=== PATIENT | male | born 1970 | race Caucasian/White ===

== ENCOUNTER 2016-11-19 10:04 | Emergency (ER) | payer OTHER ==
[~2016-11-19] VITALS: Ht 188 cm; Wt 128.0 kg
[2016-11-19 10:08] VITALS: TEMP 37; Ht 188 cm; Wt 128.0 kg
[2016-11-19] MEDS ORDERED: PRLSR20 PO (10:53)
[2016-11-19] MEDS ORDERED: ACETAMINOPHEN 500 MG TAB PO STA (10:59)
--- NOTE | 2016-11-19 11:07 | EMERGENCY ROOM VISIT NOTE ---
History Report prepared by Sudheer: Luis Alfredo Jim Under the Supervision of: Dr. Mil Rod M.D. First contact with patient: 10:49 Chief Complaint: NEURO SYMPTOMS Stated Complaint: NAUSEA/BLURRED VISION/WEAKNESS Nursing Triage Summary: pt to the ED via EMS from [facility] where around 0900 pt had blurried vision, weakness, nausea, and worsening EDDY with "swirrles" in his bilateral vision. pt has a hx of EDDY's and had a MRI and was told that he has fluid on his temporal lobe History of Present Illness The patient is a 46 year old male who presents to the Emergency Room with complaints of an episode of neurological symptoms that occurred around a couple hours ago. He says he was doing grocery shopping at [facility], and he suddenly started to get really nauseous, weak, and was shaking and felt like vomiting. He had to sit down in the middle of an aisle. The patient then got back up and felt okay, but he had to cut his shopping short. Other employees at the counter told the patient that his face was red and flushed. The patient then started to feel hot and was overall just not feeling well. He also had squiggly vision and had a hard time focusing and getting a clear facial picture. The patient then sat down on a bench, and went to the hospital. Currently, he says his weakness is still there, but his shakiness is gone. [facility] that found that he has fluid in his temporal lobe. He is going to see a neurologist at [facility] tomorrow to find out what is going on. Per the patient' s , the patient has been having a headache for the past 2 to 3 weeks. He has been having such bad migraines recently that he has had to call off work some days. He currently does have a headache, and rates it as a 5 out of 10 in severity. The patient's memory and track of thinking has also been off for the past 2 weeks. He says that he had several traumatic brain injuries in the when he was in service. The patient denies any fevers, chills, vomiting, abdominal pain, urinary symptoms, bowel problems, or changes in speech. He takes Omeprazole and Celexa daily. He has been taking Excedrin for his headache. The patient does not take any blood thinners. Source of History: patient, spouse/significant other Onset: A couple hours ago Position: other (global - neurological symptoms) Timing: other (episode) Associated Symptoms: + headache, + nausea, + weakness, No abdominal pain, No chills, No fevers, No urinary symptoms, No vomiting Note: Associated symptoms: Shaking, felt like vomiting, face red and flushed, felt hot , squiggly vision, hard time focusing and getting clear facial picture. Memory and track of thinking has been off for past 2 weeks. Denies bowel problems or changes in speech. Review of Systems All systems have been listed, reviewed, and are negative other than those previously mentioned. Please see Additional Medical History Sheet. Past Medical & Surgical Medical Problems: (1) Brain injuries (2) HTN (hypertension) (3) Skin problem Surgical Problems: (1) Hx of mastoidectomy (2) Hx of tonsillectomy Family History Diabetes mellitus Heart disease Hypertension Social History Smoking Status: Former Smoker Smokeless Tobacco Use: No Alcohol Use: none Housing Status: lives with family Occupation Status: employed Current/Historical Medications Scheduled Omeprazole (Prilosec), 20 MG PO DAILY [Citalopram], 3 TAB PO DAILY Allergies Coded Allergies: No Known Allergies (Unverified , 11/19/16) Physical Exam Vital Signs Date Time Temp Pulse Resp B/P Pulse Ox O2 Delivery O2 Flow Rate FiO2 11/19/16 14:12 79 11/19/16 14:01 88 20 155/92 96 Room Air 11/19/16 12:01 80 18 156/97 97 Room Air 11/19/16 10:08 105 11/19/16 10:08 Room Air 11/19/16 10:08 37.0 96 20 171/107 97 Room Air Physical Exam GENERAL: Patient awake, alert, oriented x 3. Patient follows commands. Patient does not appear toxic. Patient is adequately hydrated and well- nourished. SKIN: No pallor, cyanosis or rash. Erythematous scaly dry skin on forehead. HEENT: Normal head, pupils equal, reactive to light and accommodation. Oral cavity and posterior pharynx appear normal. Neck: Without adenopathy, no neck vein distention. LUNGS: Clear to auscultation. No wheezes, no rales, no rhonchi. HEART: No murmurs. No gallops. No rubs ABDOMEN: No masses, no rebound, no hepatomegaly or splenomegaly. Obese. EXTREMITIES: No signs of trauma. No pedal or pretibial edema. No calf or thigh tenderness. NEUROLOGIC: No focal findings. Cranial nerves II-XII within normal limits. No gross motor sensory function deficits. Medical Decision & Procedures ER Provider Diagnostic Interpretation: X-ray results as stated below per my interpretation and radiologist interpretation. Other radiology results as stated below per my review and radiologist interpretation: CT OF THE HEAD WITHOUT CONTRAST CLINICAL HISTORY: Weakness, nausea and blurred vision. History of traumatic brain injury. COMPARISON STUDY: No previous studies for comparison. CT DOSE: 537.48 mGy.cm TECHNIQUE: Helical axial images of the head were obtained without IV contrast. Automated exposure control was utilized for the study. FINDINGS: No acute intracranial hemorrhage, midline shift or mass effect is present. Ventricular system is normal. Basilar cisterns are patent. There are no extra-axial collections. [place]-white differentiation is maintained. There are no findings to suggest acute dural sinus thrombosis or acute territorial infarct. There is no calvarial fracture. There are postsurgical findings within the right mastoid. There is no significant sinus opacification. IMPRESSION: 1. No acute intracranial findings. 2. No calvarial fracture. 3. Deformity of the right mastoid which is likely postsurgical. Electronically signed by: Bar Corona M.D. 11/19/2016 11:37 AM Dictated Date/Time: 11/19/2016 11:28 AM CHEST 2 VIEWS ROUTINE CLINICAL HISTORY: weakness NAUSEA COMPARISON STUDY: No previous studies for comparison. FINDINGS: The heart is the upper limits of normal in size. There are slightly low lung volumes with increased right basal markings likely atelectatic. There is no lobar consolidation. There are no pleural effusions.[ IMPRESSION: No active disease in the chest. Electronically signed by: Jerry Mike M.D. 11/19/2016 11:39 AM Dictated Date/Time: 11/19/2016 11:38 AM Laboratory Results 11/19/16 10:15 Red Blood Count 5.42, Mean Corpuscular Volume 89.5, Mean Corpuscular Hemoglobin 31.9, Mean Corpuscular Hemoglobin Concent 35.7, Mean Platelet Volume 11.0, Neutrophils (%) (Auto) 51.9, Lymphocytes (%) (Auto) 36.4, Monocytes (%) (Auto) 8.5, Eosinophils (%) (Auto) 2.5, Basophils (%) (Auto) 0.6, Neutrophils # (Auto) 3.59, Lymphocytes # (Auto) 2.52, Monocytes # (Auto) 0.59, Eosinophils # (Auto) 0.17, Basophils # (Auto) 0.04 11/19/16 10:15 Test 11/19/16 10:15 11/19/16 12:20 White Blood Count 6.92 K/uL (4.8-10.8) Red Blood Count 5.42 M/uL (4.7-6.1) Hemoglobin 17.3 g/dL (14.0-18.0) Hematocrit 48.5 % (42-52) Mean Corpuscular Volume 89.5 fL (80-100) Mean Corpuscular Hemoglobin 31.9 pg (25-34) Mean Corpuscular Hemoglobin Concent 35.7 g/dl (32-36) Platelet Count 234 K/uL (130-400) Mean Platelet Volume 11.0 fL (7.4-10.4) Neutrophils (%) (Auto) 51.9 % Lymphocytes (%) (Auto) 36.4 % Monocytes (%) (Auto) 8.5 % Eosinophils (%) (Auto) 2.5 % Basophils (%) (Auto) 0.6 % Neutrophils # (Auto) 3.59 K/uL (1.4-6.5) Lymphocytes # (Auto) 2.52 K/uL (1.2-3.4) Monocytes # (Auto) 0.59 K/uL (0.11-0.59) Eosinophils # (Auto) 0.17 K/uL (0-0.5) Basophils # (Auto) 0.04 K/uL (0-0.2) RDW Standard Deviation 41.7 fL (36.4-46.3) RDW Coefficient of Variation 12.7 % (11.5-14.5) Immature Granulocyte % (Auto) 0.1 % Immature Granulocyte # (Auto) 0.01 K/uL (0.00-0.02) Prothrombin Time 11.0 SECONDS (9.0-12.0) Prothromb Time International Ratio 1.0 (0.9-1.1) Activated Partial Thromboplast Time 29.0 SECONDS (21.0-31.0) Partial Thromboplastin Ratio 1.1 Anion Gap 9.0 mmol/L (3-11) Est Creatinine Clear Calc Drug Dose 94.8 ml/min Estimated GFR () 69.8 Estimated GFR (Non- 60.3 BUN/Creatinine Ratio 15.8 (10-20) Calcium Level 8.6 mg/dl (8.5-10.1) Total Bilirubin 0.7 mg/dl (0.2-1) Aspartate Amino Transf (AST/SGOT) 23 U/L (15-37) Alanine Aminotransferase (ALT/SGPT) 71 U/L (12-78) Alkaline Phosphatase 66 U/L (45-117) Troponin I < 0.015 ng/ml (0-0.045) Total Protein 7.5 gm/dl (6.4-8.2) Albumin 3.9 gm/dl (3.4-5.0) Globulin 3.6 gm/dl (2.5-4.0) Albumin/Globulin Ratio 1.1 (0.9-2) Urine Color YELLOW Urine Appearance CLEAR (CLEAR) Urine pH 5.0 (4.5-7.5) Urine Specific [place] 1.025 (1.000-1.030) Urine Protein NEG (NEG) Urine Glucose (UA) NEG (NEG) Urine Ketones NEG (NEG) Urine Occult Blood NEG (NEG) Urine Nitrite NEG (NEG) Urine Bilirubin NEG (NEG) Urine Urobilinogen NEG (NEG) Urine Leukocyte Esterase NEG (NEG) Laboratory results as stated above per my review. Medications Administered Medications (Trade) Dose Ordered Sig/Salena Route Start Time Stop Time Status Last Admin Dose Admin Acetaminophen (Tylenol Tab) 1,000 mg NOW STAT PO 11/19/16 10:59 11/19/16 11:02 DC 11/19/16 11:08 1,000 MG ECG Indication: weakness Rate (beats per minute): 94 Rhythm: normal sinus Findings: no acute ischemic change, no ectopy ED Course 1052: Past medical records reviewed. The patient was evaluated in room C3. A complete history and physical examination was performed. 1059: Ordered Tylenol Tab 1000 mg PO. 1355: I reevaluated the patient and told him that we are just waiting for the MRI result. Medical Decision Nurses notes reviewed. Medical history sheet reviewed. Differential diagnosis includes but is not limited to: acute CVA, TIA, traumatic brain injury, meningitis, encephalitis, subdural epidural. The patient is here with a near syncopal type episode this morning. He was evaluated and multiple labs and imaging performed. Please see above. [facility] I discussed results with the patient and his . We all agree that he can safely go home. He is to follow-up with his neurologist tomorrow. Impression Primary Impression: Near syncope Scribe Attestation The scribe's documentation has been prepared under my direction and personally reviewed by me in its entirety. I confirm that the note above accurately reflects all work, treatment, procedures, and medical decision making performed by me. Departure Information Patient Instructions My [facility] Additional Instructions Continue all of your current medications as prescribed. Follow-up with your neurologist tomorrow. Return here sooner if you have another episode like you did this morning.
[2016-11-19 11:14] LABS: BASO % 0.6 %; BASO ABS # 0.04 K/uL (0-0.2); COMPLETE YES; EOS % 2.5 %; HEMATOCRIT 48.5 % (42-52); IG% 0.1 %; LYMPH % 36.4 %; LYMPH ABS # 2.52 K/uL (1.2-3.4); MEAN CELL VOLUME 89.5 fL (80-100); MEAN CORPUSCULAR HEMOGLOBIN 31.9 pg (25-34); MEAN CORPUSCULAR HGB CONC 35.7 g/dl (32-36); MONO % 8.5 %; NEUT % 51.9 %; PLATELET COUNT 234 K/uL (130-400); RED BLOOD COUNT 5.42 M/uL (4.7-6.1); WHITE BLOOD COUNT 6.92 K/uL (4.8-10.8)
[2016-11-19 11:22] LABS: ALT/SGPT 71 U/L (12-78); AST/SGOT 23 U/L (15-37); BLOOD UREA NITROGEN 22 mg/dl (7-18); BUN/CREATININE RATIO 15.8 (10-20); CALCIUM 8.6 mg/dl (8.5-10.1); CARBON DIOXIDE 24 mmol/L (21-32); CHLORIDE 109 mmol/L (98-107); GLUCOSE 100 mg/dl (70-99); POTASSIUM 4.1 mmol/L (3.5-5.1); SODIUM 142 mmol/L (136-145)
[2016-11-19 11:27] LABS: ALB/GLOB RATIO 1.1 (0.9-2); ALKALINE PHOSPHATASE 66 U/L (45-117)
[2016-11-19 11:28] LABS: PARTIAL THROMBOPLASTIN RATIO 1.1
--- NOTE | 2016-11-19 11:38 | DIAGNOSTIC IMAGING REPORT ---
CT OF THE HEAD WITHOUT CONTRAST CLINICAL HISTORY: Weakness, nausea and blurred vision. History of traumatic brain injury. COMPARISON STUDY: No previous studies for comparison. CT DOSE: 537.48 mGy.cm TECHNIQUE: Helical axial images of the head were obtained without IV contrast. Automated exposure control was utilized for the study. FINDINGS: No acute intracranial hemorrhage, midline shift or mass effect is present. Ventricular system is normal. Basilar cisterns are patent. There are no extra-axial collections. [place]-white differentiation is maintained. There are no findings to suggest acute dural sinus thrombosis or acute territorial infarct. There is no calvarial fracture. There are postsurgical findings within the right mastoid. There is no significant sinus opacification. IMPRESSION: 1. No acute intracranial findings. 2. No calvarial fracture. 3. Deformity of the right mastoid which is likely postsurgical. Electronically signed by: Bar Corona M.D. 11/19/2016 11:37 AM Dictated Date/Time: 11/19/2016 11:28 AM
--- NOTE | 2016-11-19 11:40 | DIAGNOSTIC IMAGING REPORT ---
CHEST 2 VIEWS ROUTINE CLINICAL HISTORY: weakness NAUSEA COMPARISON STUDY: No previous studies for comparison. FINDINGS: The heart is the upper limits of normal in size. There are slightly low lung volumes with increased right basal markings likely atelectatic. There is no lobar consolidation. There are no pleural effusions.[ IMPRESSION: No active disease in the chest. Electronically signed by: Jerry Mike M.D. 11/19/2016 11:39 AM Dictated Date/Time: 11/19/2016 11:38 AM
[2016-11-19] MEDS ORDERED: CITALOPRAM PO (11:48)
[2016-11-19 12:35] LABS: URINE APPEARANCE CLEAR (CLEAR); URINE BILIRUBIN NEG (NEG); URINE COLOR YELLOW; URINE NITRITE NEG (NEG); URINE SPECIFIC GRAVITY 1.025 (1.000-1.030); UROBILINOGEN NEG (NEG); ZZUR CULT IF INDIC CLEAN CATCH NO
[2016-11-19 12:39] LABS: MANUAL MICROSCOPIC REQUIRED? NO; REVIEW REQ? NO
[2016-11-19 16:10] VITALS: BP 157/105; PULSE 83; O2SAT 96
== END 2016-11-19 16:11 | disposition home or self-care (01) ==
LOC: EDBD 10:04 → C.EDC 10:05
DX: R55 Syncope and collapse (principal); I10 Essential (primary) hypertension; Z82.49 Family history of ischemic heart disease and other diseases of the circulatory system; Z87.891 Personal history of nicotine dependence; Z79.899 Other long term (current) drug therapy

== ENCOUNTER 2017-10-13 21:24 | Emergency (ER) | payer OTHER ==
[~2017-10-13] VITALS: Ht 188 cm; Wt 124.3 kg
[~2017-10-13 21:24] MED LIST: CITALOPRAM PO; PRLSR20 PO
[2017-10-13 21:29] VITALS: TEMP 36.5; Ht 188 cm; Wt 124.3 kg
[2017-10-13 21:55] VITALS: O2SAT 95
[2017-10-13] MEDS ORDERED: ALUMINUM/MAGNESIUM SUSP 30 ML UDC PO STA (22:00)
[2017-10-13] MEDS ORDERED: ACETAMINOPHEN 500 MG TAB PO STA (22:00)
[2017-10-13] MEDS ORDERED: ASPIRIN 81 MG CHEW PO STA (22:00)
[2017-10-13] MEDS ORDERED: IBUP-1451 PO (22:02)
[2017-10-13] MEDS ORDERED: LMC25 PO (22:04)
[2017-10-13] MEDS ORDERED: EFF75 PO (22:09)
--- NOTE | 2017-10-13 22:09 | EMERGENCY ROOM VISIT NOTE ---
History Report prepared by Sudheer: Roderick Valencia Under the Supervision of: Dr. Willie Pascal D.O. First contact with patient: 21:47 Chief Complaint: CHEST PAIN Stated Complaint: CHEST PAIN,137/67,HR 134, EDDY History of Present Illness The patient is a 47 year old male who presents to the Emergency Room with complaints of constant chest pain that occurred 2 hours prior to arrival. He describes the pain as a "pressure" in the center of his chest, and notes that it onset while he was sitting watching TV. He did not do an strenuous activity to cause the pain. He also complains of difficulty catching his breath and a headache. The patient's notes that he seems to be breathing heavier than usual. The patient took his vital signs when the pain began and his blood pressure was 124/73, and pulse was 134. The patient does have a family history of cardiac disease and diabetes, but no personal history of blood clotting. 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 A total of 10 systems reviewed and were otherwise negative. Past Medical & Surgical Medical Problems: (1) Brain injuries (2) HTN (hypertension) (3) Skin problem Surgical Problems: (1) Hx of mastoidectomy (2) Hx of tonsillectomy Family History Diabetes mellitus Heart disease Hypertension Social History Smoking Status: Former Smoker Alcohol Use: none Housing Status: lives with family Occupation Status: employed Current/Historical Medications Scheduled Omeprazole (Prilosec), 20 MG PO DAILY Venlafaxine Hcl (Effexor), 75 MG PO DAILY Scheduled PRN Ibuprofen Tab (Motrin), 800 MG PO Q8H PRN for Pain Allergies Coded Allergies: No Known Allergies (Unverified , 11/19/16) Physical Exam Vital Signs Date Time Temp Pulse Resp B/P (MAP) Pulse Ox O2 Delivery O2 Flow Rate FiO2 10/14/17 00:59 98 14 155/86 96 Room Air 10/13/17 23:56 96 19 148/92 97 Room Air 10/13/17 23:24 102 14 96 10/13/17 22:54 97 22 94 10/13/17 22:24 96 12 95 10/13/17 21:55 95 Room Air 10/13/17 21:55 95 Room Air 10/13/17 21:29 36.5 104 18 141/78 95 Room Air Physical Exam GENERAL: Patient is awake, alert, and in mildly anxious appearing. EYES: The conjunctivae are clear. The pupils are round and reactive. EARS, NOSE, MOUTH AND THROAT: The nose is without any evidence of any deformity. Mucous membranes are moist tongue is midline NECK: The neck is nontender and supple. RESPIRATORY: Normal respiratory effort is noted there is no evidence of wheezing rhonchi or rales CARDIOVASCULAR: Regular rate and rhythm noted there no murmurs rubs or gallops normal S1 normal S2 GASTROINTESTINAL: The abdomen is soft. Bowel sounds are present in all quadrants. Abdomen is nontender MUSCULOSKELETAL/EXTREMITIES: There is no evidence of gross deformity full range of motion is noted in the hips and shoulders SKIN: There is pedal edema bilaterally. There is no obvious evidence of any rash. There are no petechiae, pallor or cyanosis noted. NEUROLOGIC: Patient is awake alert and oriented x3. Medical Decision & Procedures ER Provider Diagnostic Interpretation: Radiology results as stated below per my review and radiologist interpretation: CHEST ONE VIEW PORTABLE HISTORY: Atypical chest pain. COMPARISON: Chest 11/19/2016. FINDINGS: The lungs are clear. Cardiac silhouette is normal in size. No pleural effusions. No pneumothorax. Low lung volumes. IMPRESSION: No acute process. Electronically signed by: Oni Pitts M.D. 10/13/2017 10:44 PM Dictated Date/Time: 10/13/2017 10:43 PM Laboratory Results 10/13/17 21:50 Red Blood Count 4.96, Mean Corpuscular Volume 89.5, Mean Corpuscular Hemoglobin 33.1, Mean Corpuscular Hemoglobin Concent 36.9, Mean Platelet Volume 10.4, Neutrophils (%) (Auto) 54.4, Lymphocytes (%) (Auto) 34.2, Monocytes (%) (Auto) 7.8, Eosinophils (%) (Auto) 2.9, Basophils (%) (Auto) 0.5, Neutrophils # (Auto) 4.95, Lymphocytes # (Auto) 3.11, Monocytes # (Auto) 0.71, Eosinophils # (Auto) 0.26, Basophils # (Auto) 0.05 10/13/17 21:50 Test 10/13/17 21:50 10/13/17 22:14 10/13/17 23:58 White Blood Count 9.10 K/uL (4.8-10.8) Red Blood Count 4.96 M/uL (4.7-6.1) Hemoglobin 16.4 g/dL (14.0-18.0) Hematocrit 44.4 % (42-52) Mean Corpuscular Volume 89.5 fL (80-100) Mean Corpuscular Hemoglobin 33.1 pg (25-34) Mean Corpuscular Hemoglobin Concent 36.9 g/dl (32-36) Platelet Count 205 K/uL (130-400) Mean Platelet Volume 10.4 fL (7.4-10.4) Neutrophils (%) (Auto) 54.4 % Lymphocytes (%) (Auto) 34.2 % Monocytes (%) (Auto) 7.8 % Eosinophils (%) (Auto) 2.9 % Basophils (%) (Auto) 0.5 % Neutrophils # (Auto) 4.95 K/uL (1.4-6.5) Lymphocytes # (Auto) 3.11 K/uL (1.2-3.4) Monocytes # (Auto) 0.71 K/uL (0.11-0.59) Eosinophils # (Auto) 0.26 K/uL (0-0.5) Basophils # (Auto) 0.05 K/uL (0-0.2) RDW Standard Deviation 41.0 fL (36.4-46.3) RDW Coefficient of Variation 12.6 % (11.5-14.5) Immature Granulocyte % (Auto) 0.2 % Immature Granulocyte # (Auto) 0.02 K/uL (0.00-0.02) Prothrombin Time 9.9 SECONDS (9.0-12.0) Prothromb Time International Ratio 0.9 (0.9-1.1) Activated Partial Thromboplast Time 26.0 SECONDS (21.0-31.0) Partial Thromboplastin Ratio 1.0 Anion Gap 9.0 mmol/L (3-11) Est Creatinine Clear Calc Drug Dose 89.8 ml/min Estimated GFR () 67.0 Estimated GFR (Non- 57.8 BUN/Creatinine Ratio 13.4 (10-20) Calcium Level 8.5 mg/dl (8.5-10.1) Total Bilirubin 0.7 mg/dl (0.2-1) Aspartate Amino Transf (AST/SGOT) 34 U/L (15-37) Alanine Aminotransferase (ALT/SGPT) 54 U/L (12-78) Alkaline Phosphatase 67 U/L (45-117) Total Creatine Kinase 823 U/L (39-308) Creatine Kinase MB 1.0 ng/ml (0.5-3.6) Creatine Kinase MB Ratio 0.1 (0-3.0) Total Protein 7.0 gm/dl (6.4-8.2) Albumin 3.5 gm/dl (3.4-5.0) Globulin 3.5 gm/dl (2.5-4.0) Albumin/Globulin Ratio 1.0 (0.9-2) Chemistry Specimen Hemolysis Bedside D-Dimer 191 ng/mlFEU (0-450) Troponin I < 0.015 ng/ml (0-0.045) Laboratory results per my review. Medications Administered Medications (Trade) Dose Ordered Sig/Salena Route Start Time Stop Time Status Last Admin Dose Admin Acetaminophen (Tylenol Tab) 1,000 mg NOW STAT PO 10/13/17 22:00 10/13/17 22:01 DC 10/13/17 22:31 1,000 MG Aspirin (Aspirin Chew) 324 mg NOW STAT PO 10/13/17 22:00 10/13/17 22:01 DC 10/13/17 22:31 324 MG Al Hydroxide/Mg Hydroxide (Maalox Susp) 30 ml NOW STAT PO 10/13/17 22:00 10/13/17 22:01 DC 10/13/17 22:31 30 ML Al Hydroxide/Mg Hydroxide (Maalox Susp) 30 ml NOW STAT PO 10/14/17 00:51 10/14/17 00:52 DC 10/14/17 00:57 30 ML ECG Indication: chest pain Rate (beats per minute): 102 Rhythm: sinus tachycardia Findings: no acute ischemic change, no ectopy Comparison ECG Date: 11/19/2016 Change: no significant change Change: REPEAT EKG: NSR rate of 96, no change from earlier. No ectopy, no acute ischemic change. ED Course 2154: The patient was evaluated in room A10. A complete history and physical examination were performed. 0: Ordered Maalox Susp 30 mL PO, Aspirin 324 mg PO, Tylenol 1000 mg PO. 2346: I reevaluated the patient at this time. He is feeling okay. 0051: Ordered Maalox 30 mL PO. 0111: Upon reevaluation, the patient is resting in bed. I discussed the results and treatment plan with him. He verbalized agreement of the treatment plan. The patient was discharged home. Medical Decision Differential diagnosis: Etiologies such as cardiac ischemia, aortic dissection, pulmonary embolism, pneumonia, pneumothorax, musculoskeletal, infections, pericarditis, myocarditis , esophageal rupture, gastrointestinal, as well as others were entertained. Nursing notes reviewed. The patient is a 47-year-old male who presented to the emergency department for an evaluation of chest discomfort. The patient had ongoing chest pain. His d- dimer is negative. He had multiple EKGs as well as serial troponin measurements in the emergency department. I discussed the patient's laboratory and radiographic studies with him. I also discussed the limitations of the emergency department workup for chest pain with him. I offered to have the patient evaluated by the hospitalist for possible inpatient management and possible stress testing but the patient stated that he was comfortable follow- up with his primary care physician and discussing further testing such as stress testing. I recommended that the patient continue all medications as prescribed and rest. He was also encouraged to avoid any strenuous activity and return to the emergency department immediately if symptoms change worsen or the need arises. Medication Reconcilliation Current Medication List: was personally reviewed by me Blood Pressure Screening Patient's blood pressure: Elevated blood pressure Blood pressure disposition: Elevated BP felt to be situational Impression Primary Impression: Substernal chest pain Scribe Attestation The scribe's documentation has been prepared under my direction and personally reviewed by me in its entirety. I confirm that the note above accurately reflects all work, treatment, procedures, and medical decision making performed by me. Departure Information Dispostion Home / Self-Care Referrals Rob Mckee D.O. (PCP) Forms Call Back Authorization, HOME CARE DOCUMENTATION FORM, IMPORTANT VISIT INFORMATION Patient Instructions My [facility] Additional Instructions Continue all medications as prescribed. Rest and avoid any strenuous activity. Call your family Dr. sorensen morning to schedule a follow-up appointment. You may require a stress test to further evaluate because her pain. Return to the emergency department immediately if symptoms change worsen or the need arises.
[2017-10-13 22:17] LABS: BASO % 0.5 %; BASO ABS # 0.05 K/uL (0-0.2); EOS % 2.9 %; EOS ABS # 0.26 K/uL (0-0.5); HEMATOCRIT 44.4 % (42-52); HEMOGLOBIN 16.4 g/dL (14.0-18.0); IG# 0.02 K/uL (0.00-0.02); INR 0.9 (0.9-1.1); LYMPH % 34.2 %; LYMPH ABS # 3.11 K/uL (1.2-3.4); MEAN CELL VOLUME 89.5 fL (80-100); MEAN CORPUSCULAR HEMOGLOBIN 33.1 pg (25-34); MEAN CORPUSCULAR HGB CONC 36.9 g/dl (32-36); MEAN PLATELET VOLUME 10.4 fL (7.4-10.4); MONO % 7.8 %; MONO ABS # 0.71 K/uL (0.11-0.59); NEUT % 54.4 %; NEUT ABS # 4.95 K/uL (1.4-6.5); PLATELET COUNT 205 K/uL (130-400); RED CELL DISTRIBUTION WIDTH CV 12.6 % (11.5-14.5)
--- NOTE | 2017-10-13 22:45 | DIAGNOSTIC IMAGING REPORT ---
CHEST ONE VIEW PORTABLE HISTORY: Atypical chest pain. COMPARISON: Chest 11/19/2016. FINDINGS: The lungs are clear. Cardiac silhouette is normal in size. No pleural effusions. No pneumothorax. Low lung volumes. IMPRESSION: No acute process. Electronically signed by: Oni Pitts M.D. 10/13/2017 10:44 PM Dictated Date/Time: 10/13/2017 10:43 PM
[2017-10-13 23:07] LABS: ALBUMIN 3.5 gm/dl (3.4-5.0); ALKALINE PHOSPHATASE 67 U/L (45-117); ALT/SGPT 54 U/L (12-78); AST/SGOT 34 U/L (15-37); BLOOD UREA NITROGEN 19 mg/dl (7-18); CALCIUM 8.5 mg/dl (8.5-10.1); CARBON DIOXIDE 26 mmol/L (21-32); CREATININE 1.44 mg/dl (0.60-1.40); GLUCOSE 125 mg/dl (70-99); POTASSIUM 3.9 mmol/L (3.5-5.1); SODIUM 139 mmol/L (136-145)
[2017-10-14] MEDS ORDERED: ALUMINUM/MAGNESIUM SUSP 30 ML UDC PO STA (00:51)
[2017-10-14 00:59] VITALS: BP 155/86; PULSE 98; O2SAT 96
== END 2017-10-14 01:05 | disposition home or self-care (01) ==
LOC: C.EDB 21:26 → C.EDA 10-14 01:05
DX: R07.2 Precordial pain (principal); I10 Essential (primary) hypertension; Z87.891 Personal history of nicotine dependence; Z90.89 Acquired absence of other organs; Z83.3 Family history of diabetes mellitus; Z82.49 Family history of ischemic heart disease and other diseases of the circulatory system

== ENCOUNTER 2018-02-12 16:53 | Emergency (ER) | payer OTHER ==
[~2018-02-12] VITALS: Ht 188 cm; Wt 126.3 kg
[~2018-02-12 16:53] MED LIST changes: -CITALOPRAM PO; +EFF75 PO; +IBUP-1451 PO
[2018-02-12 17:00] VITALS: TEMP 37; Ht 188 cm; Wt 126.3 kg
[2018-02-12] MEDS ORDERED: LIDOCAINE 1% BUFFERED INJ 5 ML VIAL ONE (17:17)
[2018-02-12] MEDS ORDERED: LIDOCAINE 1% BUFFERED INJ 5 ML VIAL INFIL ONE (17:30)
[2018-02-12] MEDS ORDERED: DOXYCYCLINE HYCLATE 100 MG CAP PO ONE (17:30)
[2018-02-12 17:41] VITALS: BP 139/110; PULSE 110; O2SAT 96
--- NOTE | 2018-02-12 20:28 | EMERGENCY ROOM VISIT NOTE ---
ED Visit Note First contact with patient: 17:04 CHIEF COMPLAINT: Tick bite to the right thigh. HISTORY OF PRESENT ILLNESS: Mr. Kraft is a 47-year-old white male who ambulates into the ED reporting he noticed a tick embedded in the posterior upper thigh this morning while taking a shower. Reports he attempted to remove it but the head remained implanted in the skin and he was not able to get it out. Currently he is complaining of a mild tenderness/pain in this area. He does not describe his discomfort. He rates his discomfort 1/10. His pain is nonradiating. Pain worsens slightly with palpation. He has not identified any alleviating factors related to the pain. He has not taken any medications for pain prior to arrival at the hospital. 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 Patient denies any associated symptoms including fevers, chills, sweats, skin eruptions, joint pain, chest pain, headache, decreased appetite, nausea, vomiting, right leg weakness/numbness/tingling. REVIEW OF SYSTEMS: As noted above in History of Present Illness; 8 body systems are reviewed with the patient and found to be negative unless noted above otherwise. PMH: Hypertension, unspecified skin disorder, GERD. CURRENT MEDICATION: Prilosec, Motrin, Effexor. ALLERGIES TO MEDICATION: Patient denies. SOCIAL HISTORY: Patient is currently employed; he feels safe in his home environment; he denies tobacco and alcohol use. TETANUS IMMUNIZATION STATUS: Patient reports up-to-date. PHYSICAL EXAM: Vital Signs: Date Time Temp Pulse Resp B/P (MAP) Pulse Ox O2 Delivery O2 Flow Rate FiO2 02/12/18 17:41 110 18 139/110 96 02/12/18 17:00 37.0 114 20 145/94 96 General: 47-year-old white male in no acute distress, nontoxic-appearing, afebrile and hemodynamically stable. Neurological: Awake, alert and oriented 3. Answering questions appropriately and following commands. Skin: Warm, dry and pink. Over the posterior proximal thigh there is a small zone of erythema and ecchymosis in the spot where the tick was implanted. There was no drainage from the wound. There is no lymphangitis. The air was mildly tender. There was no induration or fluctuance. ED COURSE: Patient is assessed as noted above. Patient's medication list was reviewed. Chief Complaint: Tick Removal: Complexity: Basic Verbal consent was obtained after the risks and benefits were explained. The skin was prepped with betadine and a sterile field set. A small wheel of 1% buffered lidocaine was placed under the implantation site of the tick. The entire ablation site was opened up with a scalpel. The head of the tick was located and removed with forceps. The wound was irrigated with sterile saline. Hemostasis and excellent approximation was achieved. Antibacterial ointment and a sterile dressing applied. No complications and the patient tolerated the procedure well. Because the length of the implantation was not completely known patient was given 200 mg of doxycycline by mouth. Patient was educated about tonight's findings and instructed on his treatment plan; he verbalizes understanding and agreement with this plan. CLINICAL IMPRESSION: Tick bite. DISPOSITION: Patient discharged home in stable condition; prior to departure he was reassessed and subjectively reported that he was pain and symptom-free. PLAN: Patient was educated on comfort measures, signs of infection and signs of Lyme' s disease. Patient was encouraged to follow-up with his PCP or return to the ED for any signs of infection, Lyme's disease or any new/concerning symptoms.
== END 2018-02-12 17:42 | disposition home or self-care (01) ==
LOC: C.EDB 16:53 → C.EDD 17:42
DX: S70.361A Insect bite (nonvenomous), right thigh, initial encounter (principal); W57.XXXA Bitten or stung by nonvenomous insect and other nonvenomous arthropods, initial encounter; I10 Essential (primary) hypertension; K21.9 Gastro-esophageal reflux disease without esophagitis; Z79.899 Other long term (current) drug therapy